=== PATIENT | male | born 1985 | race African-American/Black ===

== ENCOUNTER 2023-12-18 02:46 | Emergency (ER) | payer SELFPAY ==
[2023-12-18] MEDS ORDERED: Ketorolac Tromethamine 30 MG (1 mL) VIAL ONE (04:31)
[2023-12-18] MEDS ORDERED: HYDROcodone/Acetaminophen 5/325 mg Tablet ONE (04:32)
== END 2023-12-18 04:52 | disposition home or self-care (01) ==
LOC: ERS 02:46
DX: K02.9 Dental caries, unspecified (principal); K04.7 Periapical abscess without sinus; F17.210 Nicotine dependence, cigarettes, uncomplicated
CPT/HCPCS: 96372; 99282; J1885